=== PATIENT | female | born 1975 | race Caucasian/White ===

== ENCOUNTER 2017-03-23 11:31 | Emergency (ER) | payer OTHER ==
[~2017-03-23] VITALS: Ht 157.5 cm; Wt 78.0 kg
[2017-03-23 11:59] VITALS: BP 152/90; Ht 157.5 cm; Wt 78.0 kg
== END 2017-03-23 15:38 | disposition home or self-care (01) ==
LOC: ED 11:31
DX: J40 Bronchitis, not specified as acute or chronic (principal); R03.0 Elevated blood-pressure reading, without diagnosis of hypertension; J04.0 Acute laryngitis